=== PATIENT | male | born 1965 | race Asian ===

== ENCOUNTER 2023-12-10 19:20 | Emergency (ER) | payer OTHER ==
[~2023-12-10] VITALS: Ht 167.6 cm; Wt 81.6 kg
[2023-12-10 19:50] VITALS: BP 137/78; PULSE 94; RESP 14; TEMP 97.1; O2SAT 99
[2023-12-10] MEDS: KETOROLAC 30 MG/ML VIAL IM ONE (20:36)
[2023-12-10] MEDS ORDERED: IBUP-2213 PO (21:34)
== END 2023-12-10 22:01 | disposition home or self-care (01) ==
LOC: MED 19:20
DX: S83.92XA Sprain of unspecified site of left knee, initial encounter (principal); Z79.899 Other long term (current) drug therapy; X58.XXXA Exposure to other specified factors, initial encounter; Y92.89 Other specified places as the place of occurrence of the external cause; Y93.89 Activity, other specified; Y99.8 Other external cause status
CPT/HCPCS: 73562; 96372; 99283; J1885